=== PATIENT | male | born 1970 | race African-American/Black ===

== ENCOUNTER 2022-07-31 17:20 | Observation (INO) | payer BC, SELFPAY ==
[2022-07-31] VITALS (19 sets, daily range): BP systolic 103–142; BP diastolic 53–92; PULSE 63–86; RESP 12–21; TEMP 36.3–36.6; O2SAT 94–98; BMI 20.7
--- NOTE | ~2022-07-31 | XR_ITS ---
EXAMINATION: XR chest 2V Exam Date/Time: 07/31/2022 18:00 CAT DOG OR OTHER PET GROOMER HISTORY: HICCUPS X 3 WKS. chest pain, SOB. HX HICCUPS Comparison: None available. RESULT: Lines, tubes, and devices: None. Lungs and pleura: Calcified left lung granuloma. Lungs otherwise clear. Cardiomediastinal silhouette: Unremarkable. Other: No acute osseous or upper abdominal finding. IMPRESSION: No acute cardiopulmonary process. Reviewed, dictated and finalized at location K. DOG OR OTHER PET GROOMER
--- NOTE | ~2022-07-31 | CT_ITS ---
EXAMINATION: CTA chest PE abdomen pel DATE: 07/31/2022 19:15 INDICATION: severe SOB, CP, epigastric pain TECHNIQUE: Computed tomography angiography (CTA) of the chest was performed with 100 mL Omnipaque-350 intravenous contrast timed to evaluate the pulmonary arteries, followed by portal venous phase imagi ng of the abdomen and pelvis. Coronal maximum intensity projection 3D-reconstructions were created by the technologist. The dose-length product (DLP) was 544.14 mGy-cm. Automated exposure control and it erative reconstruction technique were employed. COMPARISON: None. FINDINGS: CHEST: Lung parenchyma and airways: Right apical pleural blebs. Calcified lingular granuloma. Motion artifac t. Pleura: Unremarkable. Thoracic inlet, axillae and chest wall: Unremarkable. Thoracic aorta: Normal. Mediastinum: Calcified left hilar granuloma. Patulous esophagus. Heart and pericardium: Normal. Coronary artery calcifications: Absent. Thoracic bones: No acute osseous finding. Pulmonary arteries: Study quality: Mild artifact from beam hardening and motion, overall diagnostic. No pulmonary emboli detected. ABDOMEN/PELVIS: Mid abdominal motion artifact. Liver: Normal. Biliary/Gallbladder: Partially contracted. No bile duct dilation. Pancreas: No mass or duct dilation. Spleen: Normal. Adrenals:No mass. Kidneys: No mass, stone, or hydronephrosis. GI tract: Distal esophageal and gastric wall edema. No small or large bowel dilation. Normal appendix . Mesentery/Peritoneum: No ascites, mass, or free air. Retroperitoneum: No mass. Mild atherosclerotic abdominal aortic and/or arterial calcifications. Pelvis: Partially distended bladder. Bladder wall thickening, likely due to outlet compromise from pr ostatomegaly. Soft Tissues: Soft tissues and body wall unremarkable. Abdominopelvic bones: No acute osseous finding. IMPRESSION: No CT evidence of acute pulmonary embolus. Esophagitis/gastritis. No other acute abdominopelvic proce ss detected Reviewed, dictated and finalized at location K. ING SHOVEL OPERATOR IMPRESSION: No CT evidence of acute pulmonary embolus. Esophagitis/gastritis. No other acut e abdominopelvic process detected
--- NOTE | 2022-07-31 17:36 | ECG_ITS ---
Measurements Intervals [place] Rate: 89 P: 78 NE: 162 QRS: 83 QRSD: 92 T: -54 QT: 341 QTc: 416 Interpretive Statements SINUS RHYTHM WITH SINUS ARRHYTHMIA POSSIBLE RIGHT ATRIAL ENLARGEMENT LEFT ATRIAL ENLARGEMENT POSSIBLE RIGHT VENTRICULAR CONDUCTION DELAY ANTEROSEPTAL MYOCARDIAL INFARCTION, PROBABLY RECENT ACUTE CA ABNORMAL ECG NO PREVIOUS ECG AVAILABLE FOR COMPARISON Electronically Signed On 08-01-2022 14:02:43 DAIRY FEED MIXING OPERATOR by Francis Toscano M.D.
[2022-07-31 17:54] LABS: Basophils Absolute Auto 0.1 K/mm3 (0.0-0.1); Basophils Percent Auto 0.9 % (0.2-1.2); Eosinophils Absolute Auto 0.4 K/mm3 (0-0.3); Eosinophils Percent Auto 3.5 % (0-4.4); Hematocrit 41.5 % (42.0-52.0); Hemoglobin 13.5 g/dL (14.0-18.0); Immature Granulocyte Absolute 0.04 K/mm3 (0.00-0.031); Immature Granulocyte Percent A 0.4 % (0-0.5); Lymphocytes Absolute Auto 3.68 K/mm3 (0.9-3.2); Lymphocytes Percent Auto 33.6 % (18.3-44.2); Mean Corpuscular HGB Conc 32.5 g/dl (32-36); Mean Corpuscular Volume 89.1 fl (80-100); Mean Platelet Volume 9.1 fl (7.4-10.4); Monocytes Absolute Auto 0.9 K/mm3 (0.1-0.6); Monocytes Percent Auto 8.3 % (2.6-8.5); Neutrophils Absolute Auto 5.9 K/mm3 (1.3-6.7); Neutrophils Percent Auto 53.3 % (45.5-73.1); Platelet Count Result 345 k/mm3 (150-375); Red Blood Count 4.66 M/mm3 (4.6-6.20); Red Cell Distribution Width 13.6 % (11.5-14.5)
--- NOTE | 2022-07-31 18:04 | ED.SOB ---
HPI - SOB/Dyspnea General Chief Complaint: Shortness of Breath/Dyspnea Stated Complaint: sob/cp/ blood in emesis Time Seen by Provider: 07/31/22 17:54 History of Present Illness HPI Narrative: Patient is a 51-year-old male here with his for evaluation of hematemesis today. Patient states that this morning he vomited what looked like coffee-ground emesis. Over the past several weeks he has felt unwell, with copious amounts of hiccuping, epigastric discomfort, and vomiting. He states he has been unable to tolerate any p.o. and has vomited about 10 minutes after every trial. He additionally reports an epigastric discomfort over the past 3 weeks that worsened today. Additionally notes he attempted a Prilosec without relief of his symptoms. He has seen his primary care doctor for this issue and was diagnosed with acid reflux, he has never had a scope done in the past. Reports occasional alcohol use about 4 drinks per week. No significant NSAID use. Related Data Home Medications Medication Instructions Recorded Confirmed albuterol sulfate 90 mcg/actuation 2 puff inhalation Q6-12H PRN 07/31/22 07/31/22 aerosol inhaler Shortness Of Breath Or Wheezing Allergies Allergy/AdvReac Type Severity Reaction Status Date / Time No Known Allergies Allergy Verified 07/31/22 17:35 Review of Systems Review of Systems: Gen: Denies fevers or chills Eyes: Denies eye pain or visual change ENT: Denies congestion Respiratory: Denies shortness of breath or cough CV: Denies chest pain or palpitations GI: Reports abdominal pain, nausea, vomiting. : denies burning, urgency, frequency or hematuria Musculoskeletal: Denies back pain or muscle pain Neuro: Denies numbness, tingling, weakness or focal weakness Skin: Denies rash Except as documented, all other systems reviewed and negative PMFSH Social History Social History Smoking packs per day: 1 Smoking cigarettes per day: 20.0 Smoking status: Heavy tobacco smoker Tobacco type: cigarettes Alcohol intake: current Drinks per week: 12 Substance use: never Lack of Transportation: No Lack of Food: Never True Current Housing: I Have Housing Concerned About Future Housing: No Difficulty Paying Gas/Electric Bills: No Difficulty Paying for Meds: No Currently Unemployed: No Education: High School Diploma/GED Difficulty w/ Childcare or Family Care: No Spiritual care concerns: No Exam Narrative: APPEARANCE: Uncomfortable appearing, copious amounts of hiccuping during the exam. Head: Normocephalic and atraumatic. EYES: PERRLA/EOMI, conjunctivae clear NOSE: No nasal drainage EARS: External ear normal in appearance THROAT: Oropharynx is clear. Mucous membranes are moist. NECK: no crepitus. Supple. No adenopathy, no masses. RESPIRATORY: Airway patent, respirations nonlabored. Clear to auscultation bilaterally, no rales, rhonchi, wheezing. CARDIOVASCULAR: Regular rate and rhythm without murmurs, rubs, or gallops. ABDOMINAL: Tenderness to palpation in the epigastric region. Normoactive bowel sounds. Soft, nontender, nondistended. No rebound tenderness or guarding. MUSCULOSKELETAL: Extremities are warm and well-perfused. Moves all extremities well. No edema. NEURO: Normal speech. No focal neurologic deficits. SKIN: Skin is warm and dry. No rashes. PSYCHIATRIC: Normal affect/mood. Course Vital Signs Vital signs: Vital Signs Temperature 97.8 F 07/31/22 17:29 Pulse Rate 86 07/31/22 17:29 Respiratory Rate 16 07/31/22 17:29 Blood Pressure 137/69 07/31/22 17:29 Pulse Oximetry 97 07/31/22 17:29 Oxygen Delivery Room Air 07/31/22 17:29 Temperature 97.3 F L 07/31/22 22:00 Pulse Rate 63 07/31/22 22:00 Respiratory Rate 16 07/31/22 22:00 Blood Pressure 103/92 H 07/31/22 22:00 Pulse Oximetry 98 07/31/22 22:00 Oxygen Delivery Room Air 07/31/22 17:29 MDM - SOB/Dyspnea MDM Narrative Medical decision making narrative:
[2022-07-31 18:05] LABS: Alanine Aminotransferase 18 U/L (6-50); Alkaline Phosphatase 94 U/L (38-126); Anion Gap 7 mmol/L (8-16); Aspartate Amino Transferase 29 U/L (17-59); Bilirubin,Total 0.6 mg/dL (0.2-1.3); Blood Urea Nitrogen 14 mg/dL (9-20); Calcium 9.3 mg/dL (8.4-10.2); Carbon Dioxide 33 mmol/L (22-30); Chloride 96 mmol/L (98-107); Estimated CRCL calculation 76 ml/min; Estimated Glomerular Filt Rate > 60; Glucose 134 mg/dL (65-110); Lipase 45 U/L (23-300); Potassium 3.4 mmol/L (3.4-5.0); Sodium 136 mmol/L (137-145)
[2022-07-31 18:09] LABS: INR 1.1; Prothrombin Time 13.3 Seconds (11.1-14.7)
[2022-07-31 18:10] LABS: Partial Thromboplastin Time 31.4 SECONDS (22.3-36.8)
[2022-07-31 18:16] LABS: Troponin I < 0.012 ng/mL (0.000-0.034)
[2022-07-31] MEDS: ASPIRIN 81 MG CHEWABLE TABLET 324 MG PO (18:19)
[2022-07-31] MEDS: PANTOPRAZOLE SODIUM IV 40 MG VIAL 80 MG IV PUSH (18:26)
[2022-07-31] MEDS: ONDANSETRON INJ 4 MG/2 ML VIAL IV PUSH (18:26)
--- NOTE | 2022-07-31 19:03 | PC.NURSE ---
Pt to CT scan via stretcher at this time.
--- NOTE | 2022-07-31 19:18 | PC.NURSE ---
Report received from MAGALI Palacios. Assumed care of patient at this time. Patient in imaging at this time.
[2022-07-31] MEDS: SODIUM CHLORIDE 0.9% IV 1,000 ML 999 ML IV CONT (19:23)
[2022-07-31 19:40] LABS: Influenza A QL RT-PCR Negative (Negative); Influenza B QL RT-PCR Negative (Negative); SARS-CoV-2 RNA PCR Negative
--- NOTE | 2022-07-31 21:12 | PM.IMHP ---
H&P: HPI History of Present Illness Date/Time: 07/31/22 21:12 Chief Complaint: Coffee-ground emesis Narrative: This is a 51-year-old male with past medical history significant for tobacco dependence, patient is a smoker of 1 pack a day of cigarettes. Patient comes to the emergency room due to 2 weeks of relentless hiccups which have now is stimulated vomiting patient has been having vomiting which had now have turned into coffee-ground emesis. Patient has not been able to eat or drink due to this, has had heartburn as well. Denies any lightheadedness, dizziness, fevers, rigors, chills denies bright red blood per rectum or hematemesis or melena. Preliminary workup was significant for hemoglobin is 13 hematocrit is 40. A CT of chest abdomen and pelvis was reported as: CHEST: Lung parenchyma and airways: Right apical pleural blebs. Calcified lingular granuloma. Motion artifact. Pleura: Unremarkable. Thoracic inlet, axillae and chest wall: Unremarkable. Thoracic aorta: Normal. Mediastinum: Calcified left hilar granuloma. Patulous esophagus. Heart and pericardium: Normal. Coronary artery calcifications: Absent. Thoracic bones: No acute osseous finding. Pulmonary arteries: Study quality: Mild artifact from beam hardening and motion, overall diagnostic. No pulmonary emboli detected. ABDOMEN/PELVIS: Mid abdominal motion artifact. Liver: Normal.? Biliary/Gallbladder: Partially contracted. No bile duct dilation. Pancreas: No mass or duct dilation. Spleen: Normal. Adrenals:No mass. Kidneys: No mass, stone, or hydronephrosis. GI tract: Distal esophageal and gastric wall edema. No small or large bowel dilation. Normal appendix. Mesentery/Peritoneum: No ascites, mass, or free air. Retroperitoneum: No mass. Mild atherosclerotic abdominal aortic and/or arterial calcifications. Pelvis: Partially distended bladder. Bladder wall thickening, likely due to outlet compromise from prostatomegaly. Soft Tissues: Soft tissues and body wall unremarkable. Abdominopelvic bones:? No acute osseous finding. IMPRESSION: No CT evidence of acute pulmonary embolus. Esophagitis/gastritis. No other acute abdominopelvic process detected Review of Systems Review of Systems: Hiccups for over 2 weeks, vomiting, coffee-ground emesis Constitutional: Constitutional: Denies chills, Denies fever(s), Denies malaise and Denies weakness Eyes: Eyes: Denies change in vision ENT: Denies dysphagia and Denies odynophagia Cardiovascular: Cardiovascular: Denies chest pain, Denies leg edema and Denies dyspnea Respiratory: Respiratory: Denies chest congestion, Denies cough, Denies pain on inspiration, Denies dyspnea on exertion and Denies wheezing Gastrointestinal: Gastrointestinal: Denies melena, Denies hematochezia, Reports coffee ground emesis, Denies dysphagia, Reports dyspepsia, Reports heartburn, Denies diarrhea, Reports nausea, Reports vomiting and Reports other (Hiccups) Genitourinary: Genitourinary: Denies dysuria Musculoskeletal: Musculoskeletal: Denies back pain, Denies joint swelling and Denies muscle weakness Integumentary/Breasts: Skin/Breast: Denies rash Neurologic: Denies focal weakness and Denies Sensory deficit (Neuro) Psychiatric: Psychiatric: Reports no additional psychiatric complaints and Reports as per HPI Endocrine: Endocrine: Denies cold intolerance, Denies flushing, Denies heat intolerance, Denies polyphagia, Denies polydipsia and Denies palpitations Hematologic/Lymphatic: Hematologic/Lymphatic: Reports no additional hematologic/lymphatic complaints and Reports as per HPI Allergic/Immunologic: Allergic/Immunologic: Reports no additional allergic/immunologic complaints and Reports as per HPI PMF Social History Social History Smoking packs per day: 1 Smoking cigarettes per day: 20.0 Smoking status: Heavy tobacco smoker Tobacco type: cigarettes Alcohol intake: current Drinks per week: 12 Substance use: never Lack of Transp
[2022-07-31 21:29] LABS: Troponin I < 0.012 ng/mL (0.000-0.034)
--- NOTE | 2022-07-31 22:07 | ADMGEN ---
This patient, Manjit Dang III, was admitted to [facility] Surg Room 330-02. Patient/family oriented to hospital policies and general routines including ID bracelet, bed and alarms, visiting hours, pain management, procedures, bathroom and other care routines, personal items, smoking policy, room service/diet, and visiting hours. Information on how to activate the Rapid Response Team has been discussed. Patient/Family are encouraged to report perceived risks to care and to ask questions if they do not understand what they are told or what they should do.
[2022-07-31] MEDS: SODIUM CHLORIDE 0.9% IV 1,000 ML 150 ML IV CONT (22:31)
[2022-07-31] MEDS: LORazepam INJ (*CRX) 2 MG/ML VIAL 1 MG IV PUSH (22:31)
[2022-08-01] VITALS (7 sets, daily range): BP systolic 94–138; BP diastolic 47–87; PULSE 52–71; RESP 16–20; TEMP 35.9–36.7; O2SAT 96–100
[2022-08-01 00:14] LABS: Hematocrit 36.5 % (42.0-52.0)
[2022-08-01 00:25] LABS: Troponin I < 0.012 ng/mL (0.000-0.034)
[2022-08-01 05:09] LABS: Hematocrit 37.4 % (42.0-52.0); Hemoglobin 11.9 g/dL (14.0-18.0)
[2022-08-01] MEDS: chlorproMAZINE HCL 10 MG TABLET PO ×2 (05:44→11:07)
--- NOTE | 2022-08-01 08:46 | WPDGICN ---
Assessment and Plan Assessment and plan (1) Coffee ground emesis: Code(s): K92.0 - Hematemesis Status: Acute Assessment and Plan: will proceed with egd to assess if ulcer, esophagitis, etc iv protonix monitor for more signs of bleeding (2) Intractable hiccups: Code(s): R06.6 - Hiccough Status: Acute Assessment and Plan: antiemetics prn (3) Tobacco dependence: Code(s): F17.200 - Nicotine dependence, unspecified, uncomplicated Status: Acute (4) Acute blood loss anemia: Code(s): D62 - Acute posthemorrhagic anemia Status: Acute Assessment and Plan: monitor trend h/h (5) Abnormal CT scan, gastrointestinal tract: Code(s): R93.3 - Abnormal findings on diagnostic imaging of other parts of digestive tract Status: Acute Assessment and Plan: noted esophagitis, will assess with egd GI Consult Note Consult date/time: 08/01/22 08:46 Reason for consult: coffee ground emesis HPI: Manjit Dang III is a 51 year old male with?past medical history significant for tobacco dependence, GERD using pepcid and omeprazole OTC as needed.?He decided to come to ER after 2 weeks of progressive hiccups that eventually made him sick and then noted coffee-ground emesis. CT scan reviewed, no PE, showed esophagitis/gastritis. hb down to 11.9 from 13, normal bun and cretinine. Admitted to hospital, given fluids and iv protonix. Never had EGD. He drinks in the weekends. Review of Systems Constitutional: Constitutional: Denies chills Eyes: Eyes: Denies blurry vision ENT: Denies tinnitus Cardiovascular: Cardiovascular: Denies chest pain Respiratory: Respiratory: Reports cough Gastrointestinal: Gastrointestinal: Reports vomiting Comments: hiccups Genitourinary: Genitourinary: Denies dysuria Musculoskeletal: Musculoskeletal: Denies back pain Integumentary/Breasts: Skin/Breast: Denies rash Neurologic: Denies Abnormal speech present Psychiatric: Psychiatric: Denies behavioral changes [facility] Past Medical History Medical History (Updated 08/01/22 @ 08:50 by Ren Davila MD) Abnormal CT scan, gastrointestinal tract Acute blood loss anemia Social History Social History Smoking packs per day: 1 Smoking cigarettes per day: 20.0 Smoking status: Heavy tobacco smoker Tobacco type: cigarettes Alcohol intake: current Drinks per week: 12 Substance use: never Lack of Transportation: No Lack of Food: Never True Current Housing: I Have Housing Concerned About Future Housing: No Difficulty Paying Gas/Electric Bills: No Difficulty Paying for Meds: No Currently Unemployed: No Education: High School Diploma/GED Difficulty w/ Childcare or Family Care: No Spiritual care concerns: No Meds Home Medications and Allergies Home Medications Medication Instructions Recorded Confirmed Type albuterol sulfate 90 mcg/actuation 2 puff inhalation Q6-12H PRN 07/31/22 07/31/22 History aerosol inhaler Shortness Of Breath Or Wheezing Allergies Allergy/AdvReac Type Severity Reaction Status Date / Time No Known Allergies Allergy Verified 08/01/22 08:50 Vital Signs Vital Signs - 24 hr 07/31/22 17:29 07/31/22 18:17 07/31/22 18:18 Temperature 97.8 F Pulse Rate 86 81 84 Respiratory Rate 16 16 Blood Pressure 137/69 141/83 H Pulse Oximetry 97 94 Oxygen Delivery Room Air 07/31/22 19:00 07/31/22 19:20 07/31/22 19:27 Temperature Pulse Rate 83 79 Respiratory Rate 21 H 21 H Blood Pressure 142/72 H Pulse Oximetry 98 96 98 Oxygen Delivery 07/31/22 19:32 07/31/22 19:49 07/31/22 20:00 Temperature Pulse Rate 71 70 73 Respiratory Rate 17 14 Blood Pressure 135/80 Pulse Oximetry 97 96 98 Oxygen Delivery 07/31/22 20:15 07/31/22 20:17 07/31/22 20:30 Temperature Pulse Rate 72 75 66 Respiratory Rate 16 18 19 Blood Pressure 118/53 L Pulse Oximetry 96 9
[2022-08-01] MEDS: LACTATED RINGERS 1,000 ML 150 ML IV CONT (08:55)
--- NOTE | 2022-08-01 08:58 | PM.IMPN ---
Progress Note: A&P Assessment and Plan (1) Coffee ground emesis: Code(s): K92.0 - Hematemesis Status: Acute Assessment and Plan: Admit to regular medical floor NPO except for ice chips PPI GI consult Continue to monitor Supportive care (2) Intractable hiccups: Code(s): R06.6 - Hiccough Status: Acute Assessment and Plan: Patient with history of hiccups in the past Now has had hiccups for over [address] abdomen and pelvis reviewed (3) Tobacco dependence: Code(s): F17.200 - Nicotine dependence, unspecified, uncomplicated Status: Acute Assessment and Plan: Nicotine patch as needed Subjective Date/time seen: 08/01/22 08:58 Interval history: Patient is a 51-year-old male with past medical history significant for tobacco dependence, current everyday smoker of 1 pack a day of cigarettes.? Patient comes to the emergency room due to 2 weeks of relentless hiccups with subsequent vomiting and now with coffee-ground emesis. CT scan suggested esophagitis/gastritis. He was admitted for management and GI evaluation. Objective Data Vital Signs Vital Signs: Vital Signs - 24 hr 07/31/22 17:29 07/31/22 18:17 07/31/22 18:18 Temperature 97.8 F Pulse Rate 86 81 84 Respiratory Rate 16 16 Blood Pressure 137/69 141/83 H Pulse Oximetry 97 94 Oxygen Delivery Room Air 07/31/22 19:00 07/31/22 19:20 07/31/22 19:27 Temperature Pulse Rate 83 79 Respiratory Rate 21 H 21 H Blood Pressure 142/72 H Pulse Oximetry 98 96 98 Oxygen Delivery 07/31/22 19:32 07/31/22 19:49 07/31/22 20:00 Temperature Pulse Rate 71 70 73 Respiratory Rate 17 14 Blood Pressure 135/80 Pulse Oximetry 97 96 98 Oxygen Delivery 07/31/22 20:15 07/31/22 20:17 07/31/22 20:30 Temperature Pulse Rate 72 75 66 Respiratory Rate 16 18 19 Blood Pressure 118/53 L Pulse Oximetry 96 96 96 Oxygen Delivery 07/31/22 20:45 07/31/22 21:00 07/31/22 21:01 Temperature Pulse Rate 66 76 81 Respiratory Rate 16 15 Blood Pressure 119/69 Pulse Oximetry 96 95 95 Oxygen Delivery 07/31/22 21:15 07/31/22 21:30 07/31/22 21:41 Temperature Pulse Rate 69 85 71 Respiratory Rate 17 12 19 Blood Pressure 119/69 Pulse Oximetry 95 97 95 Oxygen Delivery 07/31/22 22:00 08/01/22 06:00 08/01/22 08:52 Temperature 97.3 F L 96.6 F L 97.7 F Pulse Rate 63 52 L 55 L Respiratory Rate 16 16 16 Blood Pressure 103/92 H 138/79 125/85 Pulse Oximetry 98 96 98 Oxygen Delivery Room Air Intake/Output Intake/Output: Intake & Output 07/29/22 07/30/22 07/31/22 08/01/22 23:59 23:59 23:59 23:59 Intake Total 1000 0 Balance 1000 0 Meds/Results Medications: Active Medications Generic Name Dose Route Start Last Admin Trade Name Freq PRN Reason Stop Dose Admin Albuterol 2 puff 07/31/22 23:55 Albuterol Sulfate (*Sp) Aerosol 1 Puff INHALATION Q6H PRN Shortness Of Breath Or Wheezing Albuterol 2.5 mg 08/01/22 00:16 Albuterol Sulfate Neb 2.5 Mg/3 Ml Inh INHALATION Q6HRT PRN Shortness Of Breath Chlorpromazine HCl 10 mg 08/01/22 00:00 08/01/22 05:44 Chlorpromazine Hcl 10 Mg Tablet PO 10 mg Q6HR ABIGAIL Administration Acetaminophen 1,000 mg in 100 mls @ 400 mls/hr 07/31/22 20:41 Ofirmev 1,000 Mg Ivpb IVPB 08/01/22 20:40 Q6H PRN Mild Pain (1-3) or Fever Lactated Ringer's 1,000 mls @ 150 mls/hr 08/01/22 08:55 08/01/22 08:55 Lr - Lactated Ringers Iv IV CONT 150 mls/hr .Q6H40M ABIGAIL Administration Ipratropium [place] 0.5 mg 08/01/22 00:16 Ipratropium Br 0.02% Inh Soln 0.5 Mg/2.5 Ml Vial INHALATION Q6HRT PRN Shortness Of Breath Ondansetron HCl 4 mg 07/31/22 20:41 Ondansetron Inj 4 Mg/2 Ml Vial IV PUSH Q4H PRN Nausea Pantoprazole Sodium 40 mg 08/01/22 09:00 Pantoprazole Sodium Iv 40 Mg Vial IV PUSH Q12HR ABIGAIL Radiology Results: ITS
--- NOTE | 2022-08-01 09:04 | PC.NURSE ---
at appox~ 0850 pt to DARIUS becerra
--- NOTE | 2022-08-01 09:17 | WPDANESEPPF ---
Anes - Initial Pre Proc Eval Procedure: Operation Date: 08/01/22 15:30 Proposed Procedures p Esophagogastroduodenoscopy - Ren Davila MD Date/Time: 08/01/22 09:17 Surgeon: Aundrea Aguilar MD Pre Op Diagnosis: GI Bleed Patient Data Age: 51 Gender: M Height: 1.75 m Weight: 63.7 kg Last Vital Signs Temp 97.7 F 08/01/22 08:52 Pulse 55 L 08/01/22 08:52 Resp 16 08/01/22 08:52 BP 125/85 08/01/22 08:52 Pulse Ox 98 08/01/22 08:52 O2 Del Method Room Air 08/01/22 08:52 Allergies Allergy/AdvReac Type Severity Reaction Status Date / Time No Known Allergies Allergy Verified 08/01/22 08:50 Home Medications Medication Instructions Recorded Confirmed Type albuterol sulfate 90 mcg/actuation 2 puff inhalation Q6-12H PRN 07/31/22 07/31/22 History aerosol inhaler Shortness Of Breath Or Wheezing Laboratory Tests 07/31/22 07/31/22 07/31/22 17:44 17:44 17:44 WBC 11.0 K/mm3 H K/mm3 (4.5-10.0) RBC 4.66 M/mm3 M/mm3 (4.6-6.20) Hgb 13.5 g/dL L g/dL (14.0-18.0) Hct 41.5 % L % (42.0-52.0) MCV 89.1 fl fl (80-100) MCH 29.0 pg pg (26-34) MCHC 32.5 g/dl g/dl (32-36) RDW 13.6 % % (11.5-14.5) Plt Count 345 k/mm3 k/mm3 (150-375) MPV 9.1 fl fl (7.4-10.4) Immature Gran % (Auto) 0.4 % % (0-0.5) Neut % (Auto) 53.3 % % (45.5-73.1) Lymph % (Auto) 33.6 % % (18.3-44.2) [place] % (Auto) 8.3 % % (2.6-8.5) Eos % (Auto) 3.5 % % (0-4.4) Baso % (Auto) 0.9 % % (0.2-1.2) Lymph # (Auto) 3.68 K/mm3 H K/mm3 (0.9-3.2) [place] # (Auto) 0.9 K/mm3 H K/mm3 (0.1-0.6) Eos # (Auto) 0.4 K/mm3 H K/mm3 (0-0.3) Baso # (Auto) 0.1 K/mm3 K/mm3 (0.0-0.1) Abs Immat Gran (auto) 0.04 K/mm3 H K/mm3 (0.00-0.031) Absolute Neuts (auto) 5.9 K/mm3 K/mm3 (1.3-6.7) Absolute Nucleated RBC 0.0 K/mm3 K/mm3 (0.0-0.012) Nucleated RBC % 0.0 % % (0.0-0.2) PT 13.3 Seconds Seconds (11.1-14.7) INR 1.1 APTT 31.4 SECONDS SECONDS (22.3-36.8) Sodium 136 mmol/L L mmol/L (137-145) Potassium 3.4 mmol/L mmol/L (3.4-5.0) Chloride 96 mmol/L L mmol/L (98-107) Carbon Dioxide 33 mmol/L H mmol/L (22-30) Anion Gap 7 mmol/L L mmol/L (8-16) BUN 14 mg/dL mg/dL (9-20) Creatinine 1.00 mg/dL mg/dL (0.7-1.3) Estim Creat Clear Calc 76 ml/min ml/min Estimated GFR > 60 (59 - ) Glucose 134 mg/dL H mg/dL (65-110) Calcium 9.3 mg/dL mg/dL (8.4-10.2) Total Bilirubin 0.6 mg/dL mg/dL (0.2-1.3) AST 29 U/L U/L (17-59) ALT 18 U/L U/L (6-50) Alkaline Phosphatase 94 U/L U/L (38-126) Troponin I < 0.012 ng/mL ng/mL (0.000-0.034) Total Protein 8.0 g/dL g/dL (6.3-8.2) Albumin 5.0 g/dL g/dL (3.5-5.1) Lipase 45 U/L U/L (23-300) Influenza A (RT-PCR) Influenza B (RT-PCR) SARS-CoV-2 RNA (RT-PCR) Blood Type Antibody Screen 07/31/22 07/31/22 07/31/22 19:01 19:01 20:50 WBC RBC Hgb Hct MCV MCH MCHC RDW Plt Count MPV Immature Gran % (Auto) Neut % (Auto) Lymph % (Auto) [place] % (Auto) Eos % (Auto) Baso % (Auto) Lymph # (Auto) [place] # (Auto) Eos # (Auto) Baso # (Auto) Abs Immat Gran (auto) Absolute Neuts (auto) Absolute Nucleated RBC Nucleated RBC % PT INR APTT
[2022-08-01] MEDS: PANTOPRAZOLE SODIUM IV 40 MG VIAL IV PUSH (11:07)
[2022-08-01] MEDS: SUCRALFATE SUSP 100 MG/ML 10 ML UDC 1000 MG PO (11:07)
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
--- NOTE | 2022-08-02 07:51 | WPDANESPN ---
Anes - Prog Note Post-Op Date/Time: 08/02/22 07:51 Cardiovascular status: normal Respiratory status: normal Airway patency: baseline Mental status: baseline Post-Op hydration status: normal Vital Signs: Last Vital Signs Temp 98.1 F 08/01/22 13:47 Pulse 71 08/01/22 13:47 Resp 16 08/01/22 13:47 BP 128/87 08/01/22 13:47 Pulse Ox 96 08/01/22 13:47 O2 Del Method Room Air 08/01/22 10:02 Pain Score (VAS): 0/10 I/O: Intake & Output 08/01/22 08/01/22 08/02/22 15:59 23:59 07:59 Intake Total 290 Balance 290 Laboratory Tests 08/01/22 05:02 07/31/22 17:44 Post-procedural complaints: none Patient Feedback: Patient satisfied with anesthetic care.
== END 2022-08-01 14:30 | disposition home or self-care (01) ==
LOC: ANHED 20:31 → ANH3MEDSUR 21:34
PROVIDERS: Emergency Medicine; Internal Medicine Gastroenterology; Admitting Provider Internal Medicine; Emergency Provider Physician Assistant; Visit Provider Student in an Organized Health Care Education/Training Program
PROC: 0DJ08ZZ Inspection of Upper Intestinal Tract, Via Natural or Artificial Opening Endoscopic (ICD-10-PCS; CPT 43235; principal; 2022-08-01 15:30)
DX: K21.00 Gastro-esophageal reflux disease with esophagitis, without bleeding (principal); K92.0 Hematemesis; R06.6 Hiccough; R93.3 Abnormal findings on diagnostic imaging of other parts of digestive tract; I21.9 Acute myocardial infarction, unspecified; D62 Acute posthemorrhagic anemia; Z20.822 Contact with and (suspected) exposure to COVID-19; R94.31 Abnormal electrocardiogram [ECG] [EKG]; F17.210 Nicotine dependence, cigarettes, uncomplicated; F10.90 Alcohol use, unspecified, uncomplicated; Z79.51 Long term (current) use of inhaled steroids
CPT/HCPCS: 43239; 36415; 71046; 71275; 74177; 80053; 83690; 84484; 85014; 85018; 85025; 85610; 85730; 86850; 86900; 86901; 87636; 88305; 93005; 96361; 96374; 96375; 96376; 99285; A9270; C9113; G0378; J2060; J2405; J2704; J7030; J7120; Q9967

== ENCOUNTER 2024-12-17 10:25 | Emergency (ER) | payer BC, SELFPAY ==
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
--- OUTSIDE RECORDS SUMMARY | 2024-12-17 10:37 | XMS_ITS | Clinical Summary ---
Author Organization [facility] Address [address] [place] [id number] Care Team Providers Care Supervisor Paste Mixing Name Role Phone None, Provider MD Primary Care Provider Unavaila ble Allergies No known active allergies Medications ondansetron (ZOFRAN ODT) 4 MG disintegrating tablet Take 1 tablet (4 mg total) by mouth every 8 (eight) hours as needed for Nausea. 12 tablet 2 Active albuterol sulfate HFA 108 (90 Base) MCG/ACT inhaler Inhale 2 puffs into the lungs every 6 (six) hours as needed for Wheezing. 18 g 2 Active Social History Tobacco Use Types Packs/Day Years Used Date Smoking Tobacco: Every Day Cigarettes Smokeless Tobacco: Never Alcohol Use Standard Drinks/Week Comments Not Asked 0 (1 standard drink = 0.6 oz pur e alcohol) every weekend Sex and Gender Information Value Date Recorded Sex Assigned at Not on file Legal Sex Male 7:30 PM CDT Gender Identity Not on file Sexual Orientation Not on file Last Filed Vital Signs Vital Sign Reading Time Taken Comments Blood Pressure 142/84 03/14/2022 7:58 AM CDT Pulse 90 03/14/2022 7:58 AM CDT Temperature 37.3 C (99.1 F) 03/14/2022 7:58 AM CDT Respiratory Rate 18 03/14/2022 7:58 AM CDT Oxygen Saturation 94% 03/14/2022 7:58 AM CDT Inhaled Oxygen Concentration - - Weight 63 kg (138 lb 14.2 oz) 03/14/2022 7:58 AM CDT Height 175.3 cm (5' 9) 03/14/2022 7:58 AM CDT Body Mass Index 20.51 03/14/2022 7:58 AM CDT Plan of Treatment Health Maintenance Due Date Last Done Comments Colorectal Cancer Screening Colonoscopy (10 Years) 1972 Annual Physical 11/22/1975 Hepatitis C 1990 DTaP, Tdap and Td Vaccines ( 1 - Tdap) 11/22/1991 Hepatitis B Vaccines (1 of 3 - 19+ 3-dose series) 11/22/1991 Pneumococcal Vaccine: 50+ Years (1 of 2 - PCV) 11/22/1991 Zoster Vaccines (1 of 2) 2022 COVID-19 Vaccine (3 - 2023-2 5 season) 2024 02/25/2021, 02/05/2021 Meningococcal B Vaccine Aged Out No l onger eligible based on patient's age to complete this topic Meningococcal Vaccine Aged Out No ugo gabriella eligible based on patient's age to complete this topic RSV Immunizations Under 20 Months Aged Out No longer eligible b ased on patient's age to complete this topic Insurance Care Teams Supervisor Paste Mixing Relationship Specialty Start Date End Date None, Provider, PCP - General 03/14/22
[2024-12-17 10:54] VITALS: BP 147/89; PULSE 60; RESP 17; TEMP 36.6; O2SAT 99
[2024-12-17 11:30] VITALS: BP 159/89; PULSE 67; RESP 18; TEMP 36.7; O2SAT 100
--- OUTSIDE RECORDS SUMMARY | 2024-12-17 11:32 | XMS_ITS | Clinical Summary ---
Author Organization [facility] Address [address] [place] [id number] Care Team Providers Care Silo Tender Name Role Phone None, Provider MD Primary [...] to complete this topic Insurance Care Teams Silo Tender Relationship Specialty Start Date End Date None, Provider, PCP - General 03/14/22
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
[2024-12-17 12:00] VITALS: BP 139/90; PULSE 66; RESP 18; O2SAT 100
[2024-12-17] MEDS: ONDANSETRON INJ 4 MG/2 ML VIAL IV PUSH (12:21)
[2024-12-17] MEDS: MORPHINE SULFATE (*CRX) 4 MG/ML INJ IV PUSH (12:21)
[2024-12-17 12:23] LABS: Add Urine Microscopic? YES; Appearance Urine Clear (Clear); Glucose Urine UA Negative (Negative); Leukocyte Esterase Ur Trace LEU/UL (Negative); Nitrate Urine Negative (Negative); Non Pathogenic Casts 0-2; Specific Grav Ur 1.009 (1.001-1.035)
[2024-12-17 12:26] LABS: Hematocrit 41.3 % (42.0-52.0); Hemoglobin 13.3 g/dL (14.0-18.0); Immature Granulocyte Percent A 0.5 % (0-0.5); Lymphocytes Absolute Auto 2.51 K/mm3 (0.9-3.2); Mean Corpuscular HGB Conc 32.2 g/dl (32-36); Mean Corpuscular Hemoglobin 30.6 pg (26-34); Mean Corpuscular Volume 94.9 fl (80-100); Nucleated Red Blood Cells Absolute Auto 0.000 K/mm3 (0.0-0.012); Nucleated Red Blood Cells Perc 0.0 % (0.0-0.2); Platelet Count Result 283 k/mm3 (150-375); Red Blood Count 4.35 M/mm3 (4.6-6.20); White Blood Count 10.1 K/mm3 (4.5-10.0)
[2024-12-17 12:30] VITALS: BP 149/92; PULSE 66; RESP 18; O2SAT 100
[2024-12-17 12:48] LABS: Alanine Aminotransferase 19 U/L (6-50); Albumin Level 4.9 g/dL (3.5-5.1); Alkaline Phosphatase 70 U/L (38-126); Anion Gap 9 mmol/L (4-12); Aspartate Amino Transferase 33 U/L (17-59); Bilirubin,Total 0.7 mg/dL (0.2-1.3); Blood Urea Nitrogen 7 mg/dL (9-20); Calcium 9.8 mg/dL (8.4-10.2); Carbon Dioxide 25 mmol/L (22-30); Chloride 102 mmol/L (98-107); Estimated CRCL calculation 84 ml/min; Estimated Glomerular Filt Rate > 60; Glucose 95 mg/dL (65-110); Lipase 41 U/L (23-300); Potassium 4.0 mmol/L (3.4-5.0); Sodium 136 mmol/L (137-145); Total Protein 8.4 g/dL (6.3-8.2)
[2024-12-17 13:00] VITALS: BP 149/77; PULSE 73; RESP 18; O2SAT 100
[2024-12-17 13:30] VITALS: BP 159/77; PULSE 63; RESP 18; TEMP 36.7; O2SAT 100
--- NOTE | 2024-12-17 13:43 | ECG_ITS ---
Test Date: 2024-12-17 14:25:49 Measurements Intervals [place] Rate: 59 P: 53 MA: 180 QRS: 9 QRSD: 88 T: -35 QT: 424 QTc: 421 Interpretive Statements SINUS BRADYCARDIA POSSIBLE RIGHT VENTRICULAR CONDUCTION DELAY [RSR (QR) IN V1/V2] SEPTAL MYOCARDIAL INFARCTION , OF INDETERMINATE AGE [40+ ms Q WAVE IN V1/V2] MODERATE T-WAVE ABNORMALITY, CONSIDER LATERAL ISCHEMIA [-0.1+ mV T-WAVE IN I/aVL/V5/V6] MODERATE T-WAVE ABNORMALITY, CONSIDER INFERIOR ISCHEMIA [-0.1+ mV T-WAVE IN II/aVF] No previous ECG available for comparison Electronically Signed On 12-18-2024 12:33:00 CDT by González Holt M.D.
[2024-12-17 14:16] LABS: Troponin I < 0.012 ng/mL (0.000-0.034)
[2024-12-17] MEDS: PANTOPRAZOLE SODIUM IV 40 MG VIAL IV PUSH (14:49)
--- NOTE | 2024-12-17 15:02 | PC.NURSE ---
RN placed YAKOV wrap bandage on right elbow. RT brought in IS and educated patient on its use.
== END 2024-12-17 15:09 | disposition home or self-care (01) ==
PROVIDERS: Emergency Provider Physician Assistant; PCP Nurse Practitioner Family
DX: S20.212A Contusion of left front wall of thorax, initial encounter (principal); K29.70 Gastritis, unspecified, without bleeding; M70.21 Olecranon bursitis, right elbow; F17.210 Nicotine dependence, cigarettes, uncomplicated; Y04.0XXA Assault by unarmed brawl or fight, initial encounter
CPT/HCPCS: 36415; 71260; 73030; 73080; 74177; 80053; 81001; 83690; 84484; 85025; 93005; 96374; 96375; 99284; J2270; J2405; J2470; Q9967

== ENCOUNTER 2025-02-04 01:16 | Day surgery (SDC) | payer BC, SELFPAY ==
[2025-01-17 10:24] VITALS: BMI 21.4
--- OUTSIDE RECORDS SUMMARY | 2025-02-04 01:18 | XMS_ITS | Clinical Summary ---
Author Organization [facility] Address [address] [place] [id number] Care Team Providers Care Typing Office Worker Name Role Phone None, Provider MD Primary [...] to complete this topic Insurance Care Teams Typing Office Worker Relationship Specialty Start Date End Date None, Provider, PCP - General 03/14/22
[2025-02-04 09:33] VITALS: BP 157/99; PULSE 76; RESP 18; TEMP 36.7; O2SAT 100
[2025-02-04] MEDS: LACTATED RINGERS 1,000 ML 150 ML IV CONT (09:56)
--- NOTE | 2025-02-04 10:35 | WPDANESEPPF ---
Anes - Initial Pre Proc Eval Procedure: Operation Date: 02/04/25 10:30 Proposed Procedures p Screening Colonoscopy - Vincent Peguero DO Date/Time: 02/04/25 10:35 Surgeon: Vincent Peguero DO Pre Op Diagnosis: Neoplasm screening Patient Data Age: 54 Gender: M Height: 1.75 m Weight: 63.8 kg Last Vital Signs Temp 98.1 F 02/04/25 09:33 Pulse 76 02/04/25 09:33 Resp 18 02/04/25 09:33 BP 157/99 H 02/04/25 09:33 Pulse Ox 100 02/04/25 09:33 O2 Del Method Room Air 02/04/25 09:33 Allergies Allergy/AdvReac Type Severity Reaction Status Date / Time No Known Allergies Allergy Verified 01/17/25 10:23 Home Medications ?Medication ?Instructions ?Recorded ?Confirmed ?Type albuterol sulfate 90 mcg/actuation 2 puff inhalation Q4H PRN 09/07/22 01/17/25 Rx aerosol inhaler Shortness Of Breath Or Wheezing #8.5 grams blood pressure machine #1 ea 11/26/24 01/17/25 Rx montelukast 10 mg tablet 10 mg PO DAILY #90 tabs 11/26/24 02/04/25 Rx sildenafil 100 mg tablet (Viagra) 100 mg PO DAILY PRN sexual 12/03/24 01/17/25 Rx activity #30 tabs lidocaine 5 % topical patch 1 patch topical DAILY #15 ea 12/17/24 01/17/25 Rx pantoprazole 40 mg tablet,delayed 40 mg PO HS 4 weeks #28 tabs 12/17/24 02/04/25 Rx release (Protonix) varenicline tartrate 1 mg tablet 1 mg PO BID #60 tabs 01/31/25 02/04/25 Rx (Chantix) Patient hx anesthesia problems: none Family hx anesthesia problems: none Results Review: All pre-operative results and documents have been reviewed as part of the pre-operative evaluation. [facility] Past Medical History Medical History Abnormal CT scan, gastrointestinal tract Acute blood loss anemia Surgical History Surgical History History of esophagogastroduodenoscopy (EGD) Family History Family History Other Asthma Cancer Cerebrovascular accident Depression Diabetes mellitus FH: alcoholism Heart problem Thyroid disorder Social History Social History Smoking packs per day: 1 Smoking cigarettes per day: 20.0 Smoking status: Current every day smoker Tobacco type: cigarettes Alcohol intake: current Drinks per week: 12 Alcohol use details: beer Substance use: never Substance use type: does not use Lack of Transportation: No Lack of Food: Never True Current Housing: I Have Housing Concerned About Future Housing: No Difficulty Paying Gas/Electric Bills: No Difficulty Paying for Meds: No Currently Unemployed: No Education: High School Diploma/GED Difficulty w/ Childcare or Family Care: No Living arrangements: with friend(s) Occupation/Education: occupation Additional occupation/education comments: [employer] Spiritual care concerns: No Agree to blood products: Yes Anes - Eval Final PreProcedure Day of Procedure 02/04/25 10:35 Patient weight: normal Heart: regular rate and rhythm Lungs: clear to auscultation Airway: Mallampati scale class II Neurological: alert and oriented Last oral intake: >/= 8 hours ASA classification: III Emergent: no Anesthetic plan: proceed Anesthesia type and monitoring: general GIVS and standard monitoring Results Review: All pre-operative results and documents have been reviewed as part of the pre-operative evaluation. Informed Consent: The patient's anesthetic plan and its attendant risks and benefits were discussed with the patient/family/POA. Questions were solicited and answers provided to the satisfaction of the patient/family/POA.
--- NOTE | 2025-02-04 10:38 | PM.IMHP ---
H&P: HPI History of Present Illness Date/Time: 02/04/25 10:38 Chief Complaint: screening for colorectal cancer Narrative: this is a 54-year-old man who presents for colonoscopy. He has never had a colonoscopy before. He denies any family history of colon cancer in parents, but did have an uncle who had colon cancer. He denies any hematochezia or melena. Review of Systems Review of Systems: All systems reviewed & are unremarkable except as noted in HPI and below Constitutional: Constitutional: Denies chills, Denies fever(s), Denies headache(s) and Denies weight loss Eyes: Eyes: Denies change in vision ENT: Denies dizziness, Denies headache(s), Denies neck mass and Denies throat swelling Cardiovascular: Cardiovascular: Denies chest pain, Denies lightheadedness and Denies dyspnea Respiratory: Respiratory: Denies cough, Denies dyspnea and Denies wheezing Gastrointestinal: Gastrointestinal: Denies abdominal pain, Denies change in bowel habits, Denies nausea and Denies vomiting Genitourinary: Genitourinary: Denies hematuria and Denies dysuria Musculoskeletal: Musculoskeletal: Reports as per HPI Integumentary/Breasts: Skin/Breast: Reports as per HPI Neurologic: Denies dizziness and Denies headache(s) Allergic/Immunologic: Allergic/Immunologic: Denies throat swelling and Denies wheezing PMFSH Past Medical History Medical History Abnormal CT scan, gastrointestinal tract Acute blood loss anemia Surgical History Surgical History History of esophagogastroduodenoscopy (EGD) Family History Family History Other Asthma Cancer Cerebrovascular accident Depression Diabetes mellitus FH: alcoholism Heart problem Thyroid disorder Social History Social History Smoking packs per day: 1 Smoking cigarettes per day: 20.0 Smoking status: Current every day smoker Tobacco type: cigarettes Alcohol intake: current Drinks per week: 12 Alcohol use details: beer Substance use: never Substance use type: does not use Lack of Transportation: No Lack of Food: Never True Current Housing: I Have Housing Concerned About Future Housing: No Difficulty Paying Gas/Electric Bills: No Difficulty Paying for Meds: No Currently Unemployed: No Education: High School Diploma/GED Difficulty w/ Childcare or Family Care: No Living arrangements: with friend(s) Occupation/Education: occupation Additional occupation/education comments: [employer] Spiritual care concerns: No Agree to blood products: Yes Meds Home Medications and Allergies Home Medications ?Medication ?Instructions ?Recorded ?Confirmed ?Type albuterol sulfate 90 mcg/actuation 2 puff inhalation Q4H PRN 09/07/22 01/17/25 Rx aerosol inhaler Shortness Of Breath Or Wheezing #8.5 grams blood pressure machine #1 ea 11/26/24 01/17/25 Rx montelukast 10 mg tablet 10 mg PO DAILY #90 tabs 11/26/24 02/04/25 Rx sildenafil 100 mg tablet (Viagra) 100 mg PO DAILY PRN sexual 12/03/24 01/17/25 Rx activity #30 tabs lidocaine 5 % topical patch 1 patch topical DAILY #15 ea 12/17/24 01/17/25 Rx pantoprazole 40 mg tablet,delayed 40 mg PO HS 4 weeks #28 tabs 12/17/24 02/04/25 Rx release (Protonix) varenicline tartrate 1 mg tablet 1 mg PO BID #60 tabs 01/31/25 02/04/25 Rx (Chantix) Allergies Allergy/AdvReac Type Severity Reaction Status Date / Time No Known Allergies Allergy Verified 01/17/25 10:23 Vital Signs Vital Signs - 24 hr 02/04/25 09:33 Temperature 98.1 F Pulse Rate 76 Respiratory Rate 18 Blood Pressure 157/99 H Pulse Oximetry 100 Oxygen Delivery Room Air Exam Const: General: no acute distress and alert Orientation/consciousness: patient oriented x3 HENMT: Head: normocephalic and atraumatic Ears: hearing grossly normal bilaterally Face/Nose/Sinus: Normal nares present Mouth: Yes Normal oral and palatal mucosa present Eyes: Periorbital: periorbital findings normal Sclera: sclerae normal EOM: EOMs intact bilaterally Neck: Neck: normal visual inspection, no lymphadenopathy and trachea midline Chest: Chest palpation & inspection: normal inspection of the chest Resp: Effort & Inspection: normal respiratory effort Auscultation: clear to auscultation bilaterally Cardio: Jugular venous distension: no JVD Rate: regular rate Rhythm: regular rhythm Heart sounds: S1 normal heart sound present and S2 normal heart sound present Peripheral pulses: Peripheral pulses 2+ throughout GI: Inspection: normal to inspection GI Palp: Yes Soft to palpation, No Tenderness to palpation present (GI), No Guarding due to palpation present (GI) and No Rebound tenderness present Percussion: Yes normal to percussion Auscultation: normal bowel sounds : General: Yes no CVA tenderness Back/Spine/Pelvis: Back: no CVA tenderness Neuro: General: patient oriented x3, no focal motor deficits and CN's II-XI intact bilaterally Cognition (Neuro): normal cognition Speech: normal speech Motor exam (neuro): 5/5 motor strength present throughout Extrem: General: capillary refill normal and no clubbing, cyanosis or edema Assessment and Plan Assessment and plan (1) Screening for colorectal cancer: Code(s): Z12.11 - Encounter for screening for malignant neoplasm of colon; Z12.12 - Encounter for screening for malignant neoplasm of rectum Status: Acute Assessment and Plan: I have recommended colonoscopy. I have discussed the procedure, risks, benefits, and alternatives. Questions were answered. Patient is agreeable to proceed.
[2025-02-04 11:05] VITALS: BP 97/64; PULSE 74; RESP 18; O2SAT 97
[2025-02-04 11:15] VITALS: BP 123/70; PULSE 71; RESP 25; O2SAT 97
[2025-02-04 11:18] VITALS: BP 147/79; PULSE 72; RESP 22; O2SAT 97
== END 2025-02-04 11:35 | disposition home or self-care (01) ==
PROVIDERS: PCP Nurse Practitioner Family; Visit Provider Surgery
PROC: 0DJD8ZZ Inspection of Lower Intestinal Tract, Via Natural or Artificial Opening Endoscopic (ICD-10-PCS; CPT 45378; principal; 2025-02-04 10:30)
DX: Z12.11 Encounter for screening for malignant neoplasm of colon (principal); K64.8 Other hemorrhoids; D62 Acute posthemorrhagic anemia; F17.210 Nicotine dependence, cigarettes, uncomplicated; Z79.51 Long term (current) use of inhaled steroids; Z80.0 Family history of malignant neoplasm of digestive organs; Z82.49 Family history of ischemic heart disease and other diseases of the circulatory system
CPT/HCPCS: 45378; J2003; J2704; J7120